=== PATIENT | female | born 1995 | race Caucasian/White ===

== ENCOUNTER 2017-08-12 16:37 | Emergency (ER) | payer OTHER ==
[~2017-08-12 16:37] MED LIST: AMOX500T PO
--- NOTE | 2017-08-12 17:16 | PD ---
HPI Chief Complaint Contractions Date Seen: Aug 12, 2017 Time Seen: 16:50 (Tal Soto MD R1) Travel History International Travel<30 Days: No Contact w/Intl Traveler<30Days: No Known Affected Area: No (Tal Soto MD R1) History of Present Illness HPI Alexis is a 21-year-old at 37 and 2 who is presenting to the ED with complaints of contractions. Patient states that she was seen by her OB doctor earlier this morning and was found to be 3 cm dilated. Since that exam she is been experiencing worsening contractions that have increased in duration and intensity. She states that her contractions are roughly every 3 minutes. She denies a gush of fluid, vaginal bleeding, decreased movement. She reports normal movement. He denies fevers or chills, dysuria or chest pain shortness of breath. She does complain of some nausea, but no vomiting. Patient has taken 1 dose of amoxicillin after her urine this morning was GBS positive. Patient has no other medical problems, does report smoking several cigarettes per day but no other alcohol or illicit drug use. (Tal Soto MD R1) History Past Medical History Medical History: Denies Significant Hx (Tal Soto MD R1) Obstetric History Obstetric History with 1 miscarriage. GBS positive, otherwise no complications during this . (Tal Soto MD R1) Past Surgical History Surgical History: No Previous Surgery (Tal Soto MD R1) Family History Narrative Family History Family history of multiple types of cancers including breast, colon, lung. No family history of diabetes or hypertension reported. (Tal Soto MD R1) Social History Narrative Social History Reports smoking several cigarettes per day Denies alcohol or illicit drug use. (Tal Soto MD R1) Allergies-Medications (Allergen,Severity, Reaction): Coded Allergies: No Known Allergies (Unverified , 08/18/17) Home Meds Active Scripts Sennosides-Docusate Sodium (Gnp Senna Plus 8.6-50 mg) 8.6 Mg-50 Mg Tab, 2 TAB PO Q12H Y for CONSTIPATION, #30 TAB Prov:Tez Braxton MD, R2 08/24/17 Oxycodone HCl/Acetaminophen (Oxycodone-Acetaminophen 5-325) 5 Mg-325 Mg Tablet, 1 TAB PO Q6H Y for PAIN SCALE 6 TO 10, #20 Prov:Tez Braxton MD, R2 08/24/17 Ibuprofen (Ibuprofen) 800 Mg Tab, 800 MG PO Q8H Y for CRAMPING, #30 TAB Prov:Tez Braxton MD, R2 08/24/17 Discontinued Scripts Vit W/ Ferrous Fumara Chew (Se-Ruby 19 29-1 mg Chew) 1 Chew, 1 TAB CHEW DAILY for Nutritional Supplement, #30 EA 11 Refills Prov:Adelita Yost [facility] 08/18/17 Amoxicillin (Amoxicillin) 500 Mg Tab, 500 MG PO TID for Infection, #12 TAB 0 Refills Prov:Adelita Yost [facility] 08/12/17 Review of Systems Except as stated in HPI: all other systems reviewed are Neg (Tal Soto MD R1) Physical Exam Narrative GENERAL: Well-nourished, well-developed patient. SKIN: Warm and dry. HEAD: Normocephalic and atraumatic. EYES: No scleral icterus. No injection or drainage. ENT: No nasal drainage noted. Mucous membranes pink. Airway patent. NECK: Supple, trachea midline. No JVD. CARDIOVASCULAR: Regular rate and rhythm without murmurs, gallops, or rubs. RESPIRATORY: Breath sounds equal bilaterally. No accessory muscle use. ABDOMEN/GI: Abdomen soft, non-tender, bowel sounds present, no rebound, no guarding Gravid to 37 weeks size GENITOURINARY: External Genitalia: intact and normal in appearance Cervix: Posterior Dilatation: 3 cm Effacement: 60% Station: -2 Presentation: Unknown Membranes: Intact Uterine Contractions: Actions every 3-5 minutes FHT's: Category: Early 1 Baseline: 135 Reactive: Yes Variability: Moderate Decels: Absent EXTREMITIES: No cyanosis or edema. BACK: Nontender without obvious deformity. No CVA tenderness. NEUROLOGICAL: Awake and alert. Motor and sensory grossly within normal limits. Five out of 5 muscle strength in all muscle groups. Normal speech. (Tal Soto MD R1) MDM Plan 21-year-old at 37 and 2 presenting to the ED with contractions at term. 1. Contractions -Patient having contractions on the monitor every 3-5 minutes -Category 1 tracing -Will monitor for active labor, and discharge if patient does not go in active labor Seen and discussed with Dr. Aaron (Tal Soto MD R1) Attending Attestation I was present, personally saw and examined patient, and was involved in all cutler decision making portions. [facility] (Adelita Aaron MD) Diagnosis Diagnosis: Primary Impression: contractions at term Tal Soto MD R1 Aug 12, 2017 17:16 Adelita Aaron MD Aug 24, 2017 18:48
--- NOTE | 2017-08-12 18:48 | PD ---
History of Present Illness History of Present Illness BP report Indications: IUP at 37 weeks, assessment of well-being Biophysical profile was performed with an JASON of 15.57, greater than 30 seconds breathing, greater than 3 gross movements, and several episodes of flexion-extension were noted. heart rate tracing with a baseline in the 130s with moderate long-term variability, good accelerations, no decelerations were noted with a reactive heart rate tracing [facility] 07/01 Follow-up: Follow-up as clinically indicated Final diagnosis: IUP at 37 weeks, reassuring testing, false labor Adelita Aaron MD Aug 12, 2017 18:48
[2017-08-18] MEDS ORDERED: SE-NCHW CHEW (09:37)
== END 2017-08-12 18:49 | disposition home or self-care (01) ==
LOC: HOBED 16:37
DX: O47.1 False labor at or after 37 completed weeks of gestation (principal); O99.333 Smoking (tobacco) complicating pregnancy, third trimester; Z3A.37 37 weeks gestation of pregnancy; Z79.899 Other long term (current) drug therapy
CPT/HCPCS: 59025

== ENCOUNTER 2017-08-22 06:07 | Inpatient (IN) | payer OTHER ==
[2017-08-22] VITALS (49 sets, daily range): BP systolic 87–117; BP diastolic 49–94; PULSE 76–128; RESP 16–20; TEMP 97.5–99.5; O2SAT 98
[~2017-08-22 06:07] MED LIST changes: +SE-NCHW CHEW
[2017-08-22] MEDS ORDERED: LACTATED RINGER'S 1000 ML INJ 1,000 ML IV PRN (06:38)
[2017-08-22] MEDS ORDERED: CITRIC ACID-SODIUM CITRATE LIQ 30 ML UDC PO SCH (06:45)
[2017-08-22] MEDS ORDERED: SODIUM CHLORID 0.9% 500 ML INJ 500 ML IV PRN (06:45)
[2017-08-22] MEDS ORDERED: LIDOCAINE HCL 1% 50 ML VIAL I-DERMAL PRN (06:45)
[2017-08-22] MEDS ORDERED: OXYTOCIN 30 UNITS-500ML PREMIX 500 ML IV ONE (06:45)
[2017-08-22] MEDS ORDERED: PENICILLIN G POTASSIUM INJ 5,000,000 UNITS in SODIUM CHLORIDE 0.9% INJ 100 ML IV ONE (06:45)
[2017-08-22] MEDS ORDERED: ONDANSETRON HCL 4 MG/2 ML VIAL IV PUSH PRN (06:45)
[2017-08-22] MEDS ORDERED: MINERAL OIL 10 ML VIAL TOPICAL PRN (06:45)
[2017-08-22] MEDS ORDERED: LIDOCAINE HCL 1% 50 ML VIAL INFIL PRN (06:45)
--- NOTE | 2017-08-22 06:46 | HHI.PR ---
[employer]' Note Note LABOR AND DELIVERY ADMISSION H&P HPI Chief Complaint ctx Date Seen: Aug 22, 2017 Time Seen: 06:40 Travel History International Travel<30 Days: No Contact w/Intl Traveler<30Days: No Known Affected Area: No History of Present Illness HPI Pt is a 21y/o @ 38.5wks. She has PNC at [facility]. She presents with c/o ctx which started at 11pm. They are painful and every 3-5mins. No LOF or VB. +FM. Weeks Gestation: 38 Para: 1 : 3 History Past Medical History Medical History: Denies Significant Hx Obstetric History Obstetric History x1 SAB x1 Past Surgical History Narrative Surgical wisdom teeth extraction Family History Family History: Negative Social History Alcohol Use: No Tobacco Use: Yes ("a few per day") Substance Abuse: No Allergies-Medications (Allergen,Severity, Reaction): Coded Allergies: No Known Allergies (Unverified , 08/18/17) Home Meds Active Scripts Vit W/ Ferrous Fumara Chew (Se-Ruby 19 29-1 mg Chew) 1 Chew, 1 TAB CHEW DAILY for Nutritional Supplement, #30 EA 11 Refills Prov:Adelita Yost 08/18/17 Discontinued Scripts Amoxicillin (Amoxicillin) 500 Mg Tab, 500 MG PO TID for Infection, #12 TAB 0 Refills Prov:Adelita Yost 08/12/17 Review of Systems Except as stated in HPI: all other systems reviewed are Neg Physical Exam Narrative General: well developed, well nourished, uncomfortable with contractions HEENT: normocephalic atraumatic, extraocular movements intact, neck supple Abdomen: soft, gravid Uterus: fundus term Extremities: full range of motion Skin: normal coloration, no rashes, no suspicious skin lesions noted Neurologic: cranial nerves 2-12 grossly intact, normal muscle tone, normal gait Psychiatric: normal mood and affect, appropriate FHTs: 135, minimal variability, + accels, no decels, reactive [place]: ctx q3m Cvx: 7-8/90/-1 Data Data Vital Signs Reviewed: Yes Orders Orders Ob (2e) Additional Admit Info (08/22/17 06:29) Vital Signs (Adult) .ON ADMISSION (08/22/17 06:38) ^ Labor Status (08/22/17 06:38) ^ Non Stress Test (08/22/17 06:38) Admit To Inpatient (08/22/17 ) Vital Signs (Adult) .Per protocol (08/22/17 06:38) Heart (08/22/17 06:38) Amnioinfusion (08/22/17 06:38) Urinary Catheter Management .ONCE (08/22/17 06:38) Diet Liquid (08/22/17 Breakfast) Lactated Ringer's 1000 Ml Inj (Lr 1000 M (08/22/17 06:38) Lactated Ringer's 1000 Ml Inj (Lr 1000 M (08/22/17 06:38) Sodium Chlorid 0.9% 500 Ml Inj (Ns 500 M (08/22/17 06:45) Sodium Chlor 0.9% 1000 Ml Inj (Ns 1000 M (08/22/17 06:58) Lidocaine 1% Inj (50 Ml) (Xylocaine 1% I (08/22/17 06:45) Citric Acid-Sodium Citrate Liq (Bicitra (08/22/17 06:45) Ondansetron Inj (Zofran Inj) (08/22/17 06:45) Fentanyl Inj (Fentanyl Inj) (08/22/17 06:45) Fentanyl Inj (Fentanyl Inj) (08/22/17 06:45) Penicillin G Potassium Inj (Pfizerpen-G (08/22/17 06:45) Penicillin G Potassium Inj (Pfizerpen-G (08/22/17 10:45) Complete Blood Count With Diff (08/22/17 06:38) Hold Clot (08/22/17 06:38) Abo/Rh Blood Type (08/22/17 06:38) Urinalysis - C+S If Indicated (08/22/17 06:38) Drug Screen, Random Urine (08/22/17 06:38) Rapid Plasma Regin (Rpr) W Ttr (08/22/17 06:38) Resp Oxygen Non Rebreathe Mask (08/22/17 ) ^ Epidural / Intrathecal Infus (08/22/17 06:38) Oxytocin 30 Units-500ml Premix (Pitocin (08/22/17 06:45) Lidocaine 1% Inj (50 Ml) (Xylocaine 1% I (08/22/17 06:45) Light Mineral Oil (Muri-Lube Oil) (08/22/17 06:45) Inpatient Certification (08/22/17 ) Group B Strep: Positive MDM Plan 21y/o @ 38.5wks in active labor. -- admit to L&D -- CLD, epidural/morales PRN -- PCN for GBS positive -- anticipate Diagnosis Diagnosis: Primary Impression: 38 weeks gestation of Additional Impressions: Uterine contractions during GBS (group B Streptococcus carrier), +RV culture, currently Tobacco use affecting in third trimester, antepartum Joaquín Campos MD Aug 22, 2017 06:44 Joaquín Campos MD Aug 22, 2017 06:46
[2017-08-22] MEDS ORDERED: SODIUM CHLOR 0.9% 1000 ML INJ 1,000 ML IV PRN (06:58)
[2017-08-22] MEDS: LACTATED RINGER'S 1000 ML INJ 1,000 ML IV SCH ×2 (07:04→07:48)
[2017-08-22 07:05] LABS: AUTOMATED NEUTROPHIL # 10.5 TH/MM3 (1.8-7.7); BASOPHIL % 0.3 % (0.0-2.0); EOSINOPHIL # 0.1 TH/MM3 (0-0.4); EOSINOPHIL % 0.8 % (0.0-4.0); HEMO FLAGS DIFF FINAL; LYMPH % 14.8 % (9.0-44.0); MEAN CELL VOLUME 83.6 FL (80.0-100.0); MEAN CORPUSCULAR HEMOGLOBIN 28.1 PG (27.0-34.0); MEAN CORPUSCULAR HGB CONC 33.6 % (32.0-36.0); MONO % 7.6 % (0.0-8.0); NEUT % 76.5 % (16.0-70.0); PLATELET COUNT 179 TH/MM3 (150-450); RED CELL DISTRIBUTION WIDTH 13.2 % (11.6-17.2); WHITE BLOOD COUNT 13.7 TH/MM3 (4.0-11.0)
[2017-08-22] MEDS ORDERED: fentaNYL 2MCG-BUPIV 0.125% INJ 100 ML ONE (07:07)
[2017-08-22] MEDS ORDERED: ePHEDrine/NS 25 MG/5 ML SYR ONE (07:08)
--- NOTE | 2017-08-22 07:14 | HHI.OB ---
Objective Vitals/I&O Vital Signs Date Time Temp Pulse Resp B/P (MAP) Pulse Ox O2 Delivery O2 Flow Rate FiO2 08/22/17 06:45 20 08/22/17 06:36 103 111/64 (80) Result Diagram: 08/22/17 0645 Objective Remarks GENERAL: Well-nourished, well-developed patient. CARDIOVASCULAR: Regular rate and rhythm without murmurs, gallops, or rubs. RESPIRATORY: Breath sounds equal bilaterally. No accessory muscle use. ABDOMEN/GI: Abdomen soft, non-tender, bowel sounds present. Incision: Clean, dry and intact. Fundus: Firm, non-tender at umbilicus. GENITOURINARY: Light to moderate bleeding. EXTREMITIES: No cyanosis or edema, non-tender, without signs of DVT. Medications and IVs Current Medications Medications (Trade) Dose Ordered Sig/Bandar Route Start Time Stop Time Status Last Admin Lactated Ringer's 1,000 ml @ 125 mls/hr Q8H IV 08/22/17 06:38 08/22/17 07:04 Lactated Ringer's 1,000 ml @ 3,000 mls/hr Q20M PRN IV 08/22/17 06:38 Sodium Chloride 500 ml @ 1,000 mls/hr ONCE PRN IV 08/22/17 06:45 Sodium Chloride 1,000 ml @ 100 mls/hr Q10H PRN IV 08/22/17 06:58 (Xylocaine 1% Inj (50 ml)) 0.1 ml UNSCH X1 PRN I-DERMAL 08/22/17 06:45 08/25/17 06:44 (Bicitra Liq) [address] CLERK PO 08/22/17 06:45 08/26/17 06:44 (Zofran Inj) 4 mg Q6H PRN IV PUSH 08/22/17 06:45 (fentaNYL INJ) 50 mcg Q1H PRN IV PUSH 08/22/17 06:45 (fentaNYL INJ) 100 mcg Q1H PRN IV PUSH 08/22/17 06:45 Penicillin G Potassium 9881514 units/Sodium Chloride 100 ml @ 200 mls/hr ONCE ONCE IV 08/22/17 06:45 08/22/17 07:14 08/22/17 06:45 Penicillin G Potassium [id number] units/Sodium Chloride 100 ml @ 200 mls/hr Q4H IV 08/22/17 10:45 Oxytocin 500 ml @ 999 mls/hr ONCE ONCE IV 08/22/17 06:45 08/22/17 07:15 (Xylocaine 1% Inj (50 ml)) 10 ml UNSCH X1 PRN INFIL 08/22/17 06:45 08/24/17 06:44 (Muri-Lube Oil) 10 ml UNSCH PRN TOPICAL 08/22/17 06:45 Reyna Live MD R2 Aug 22, 2017 07:14
[2017-08-22 07:17] LABS: BACTERIA, URINE RARE /hpf; BLOOD, URINE NEG (NEG); COMMENT (UR) CULTURE INDICATED; CULTURE IF INDICATED CULTURE INDICATED; GLUCOSE,URINE NEG (NEG); KETONE, URINE TRACE mg/dL (NEG); MUCUS URINE FEW /lpf (OCC); NITRITE,URINE NEG (NEG); SQUAMOUS EPITHELIAL CELL URINE 28 /hpf (0-5); URINE COLOR YELLOW (YELLW/STRAW)
[2017-08-22] MEDS ORDERED: NO SYSTEM NARCOTICS PRN (10:30)
[2017-08-22] MEDS ORDERED: ePHEDrine/NS 25 MG/5 ML SYR IV PUSH PRN (10:30)
[2017-08-22] MEDS ORDERED: DO NOT ADMINISTER ANTICOAGULANTS PRN (10:30)
[2017-08-22] MEDS ORDERED: fentaNYL 2MCG-BUPIV 0.125% 100 ML EPIDURAL SCH (10:30)
[2017-08-22] MEDS ORDERED: PENICILLIN G POTASSIUM INJ 2,500,000 UNITS in SODIUM CHLORIDE 0.9% INJ 100 ML IV SCH (10:45)
[2017-08-22] MEDS ORDERED: WITCH HAZEL 50%/GLYCERIN 12.5% 40 PAD JAR TOPICAL PRN (11:15)
[2017-08-22] MEDS ORDERED: BENZOCAINE 20% TOPICAL SPRAY 60 ML CAN TOPICAL PRN (11:15)
[2017-08-22] MEDS ORDERED: ACETAMINOPHEN 325 MG TAB PO PRN (11:15)
[2017-08-22] MEDS ORDERED: ONDANSETRON ODT 4 MG TAB PO PRN (11:15)
[2017-08-22] MEDS ORDERED: ALUMINUM/MAGNESIUM/SIMETH 30 ML CUP PO PRN (11:15)
[2017-08-22] MEDS ORDERED: SODIUM CHLORIDE 0.9% FLUSH 10 ML FLUSH IV FLUSH PRN (11:15)
--- NOTE | 2017-08-22 11:25 | PD.OB.DELI ---
Weeks gestation: 38 (38/5) Gest age assessed date: Aug 22, 2017 Gest age assessed time: 11:17 Pt started active labor?: Yes Active labor start date: Aug 22, 2017 Active labor start time: 06:00 Medical induction of labor?: No Artificial rupture of membrane: Yes Artificial ROM date: Aug 22, 2017 Artifical ROM time: 10:54 Anesthesia: Epidural Episiotomy: None Vaginal Delivery: Normal, Spontaneous Presentation: Occiput anterior Nuchal Cord: None Delayed cord clamping (45 sec): Yes Infant: Male Delivery date: Aug 22, 2017 Delivery time: 11:02 One Minute : 8 Five Minute : 9 Weight: 3232g Placenta: Spontaneous delivery, Intact Laceration: 1 deg (left labial laceration w/o bleeding; no laceration repair required) Estimated blood loss: 150cc Additional Information Delivered by Dr Sow, supervised by Dr Arellano, and assisted by Dr Live. Superficial left labial laceration w/o bleeding did not require laceration repair. Lan Sow MD R1 Aug 22, 2017 11:25
[2017-08-22] MEDS: IBUPROFEN 800 MG TAB PO PRN ×2 (11:52→19:58)
[2017-08-22] MEDS ORDERED: OXYTOCIN 30 UNITS-500ML PREMIX 500 ML IV SCH (12:00)
[2017-08-22] MEDS ORDERED: MEASLES, MUMPS, RUBELLA VACCINE 0.5 ML VIAL SQ ONE (16:00)
[2017-08-22] MEDS ORDERED: DIPHTH/TETANUS/ACEL PERTUSSIS (BOOSTER) 0.5 ML VIAL/PFS IM ONE (16:00)
[2017-08-22] MEDS: oxyCODONE/ACETAMINOPHEN 5 MG/325 MG TAB PO PRN (18:04)
[2017-08-22] MEDS: SODIUM CHLORIDE 0.9% FLUSH 10 ML FLUSH IV FLUSH SCH (19:39)
[2017-08-22] MEDS ORDERED: ZOLPIDEM TARTRATE 5 MG TAB PO PRN (21:00)
[2017-08-23] MEDS: oxyCODONE/ACETAMINOPHEN 10 MG/325 MG TAB PO PRN ×4 (00:10→18:32)
[2017-08-23] MEDS: IBUPROFEN 800 MG TAB PO PRN ×3 (03:08→23:19)
--- NOTE | 2017-08-23 08:04 | HHI.OB ---
Subjective Post Day: 1 Remarks day #1. AFVSS overnight. Pain somewhat controlled. Lochia less than a period. Denies dysuria. She is feeding the baby via bottle. Appetite good. She has nausea but no vomiting. Positive flatus. Negative bowel movement. Ambulating well. Denies calf pain, shortness of breath, or cough. Otherwise, she is doing well this morning and has no other complaints. Objective Vitals/I&O Vital Signs Date Time Temp Pulse Resp B/P (MAP) Pulse Ox O2 Delivery O2 Flow Rate FiO2 08/22/17 19:25 97.5 79 16 113/66 (82) 98 08/22/17 12:30 83 108/57 (74) 08/22/17 12:16 88 99/49 (66) 08/22/17 12:00 84 110/65 (80) 08/22/17 11:45 94 112/74 (87) 08/22/17 11:30 96 108/67 (81) 08/22/17 11:15 99.1 20 08/22/17 11:14 100 113/63 (80) 08/22/17 11:01 128 107/77 (87) 08/22/17 10:30 81 110/65 (80) 08/22/17 10:04 102 104/64 (77) 08/22/17 10:01 92 110/94 (99) 08/22/17 09:55 88 08/22/17 09:50 95 08/22/17 09:45 90 08/22/17 09:45 99.5 08/22/17 09:45 98.7 08/22/17 09:40 86 08/22/17 09:35 86 08/22/17 09:33 16 08/22/17 09:30 85 08/22/17 09:30 87 110/60 (77) 08/22/17 09:25 90 08/22/17 09:20 91 08/22/17 09:15 85 08/22/17 09:10 87 08/22/17 09:05 88 08/22/17 09:00 88 102/67 (79) 08/22/17 08:55 98 08/22/17 08:50 84 08/22/17 08:45 88 08/22/17 08:40 92 08/22/17 08:35 91 12/1/17 08:30 83 08/22/17 08:30 82 97/54 (68) 08/22/17 08:28 20 08/22/17 08:25 87 08/22/17 08:20 87 117/70 (86) 08/22/17 08:20 95 08/22/17 08:15 86 101/61 (74) 08/22/17 08:15 89 08/22/17 08:10 87 08/22/17 08:10 84 100/56 (71) 08/22/17 08:05 85 105/58 (74) 08/22/17 08:05 76 08/22/17 08:00 87 08/22/17 08:00 87 106/57 (73) Objective Remarks GENERAL: Well-nourished, well-developed patient. CARDIOVASCULAR: Regular rate and rhythm without murmurs, gallops, or rubs. RESPIRATORY: Breath sounds equal bilaterally. No accessory muscle use. ABDOMEN/GI: Abdomen soft, non-tender. Fundus: Firm, non-tender below umbilicus. GENITOURINARY: Light to moderate bleeding. EXTREMITIES: No cyanosis or edema, non-tender, without signs of DVT. Medications and IVs Current Medications Medications (Trade) Dose Ordered Sig/Bandar Route Start Time Stop Time Status Last Admin (NS Flush) 2 ml BID IV FLUSH 08/22/17 11:15 (NS Flush) 2 ml UNSCH PRN IV FLUSH 08/22/17 11:15 (Tylenol) 650 mg Q4H PRN PO 08/22/17 11:15 08/22/17 14:04 (Motrin) 800 mg Q8H PRN PO 08/22/17 11:15 08/23/17 03:08 (Americaine 20% Top Spr) 1 spray Q4H PRN TOPICAL 08/22/17 11:15 (Tucks Pads) 1 applic QID PRN TOPICAL 08/22/17 11:15 (Tamar-Colace) 2 tab Q12H PRN PO 08/22/17 11:15 (Ambien) 5 mg HS PRN PO 08/22/17 21:00 08/23/17 00:10 (Mag-Al Plus Susp Liq) 15 ml Q8H PRN PO 08/22/17 11:15 (Zofran Odt) 4 mg Q6H PRN PO 08/22/17 11:15 (Percocet 5-325 Mg) 1 tab Q6H PRN PO 08/22/17 17:45 08/22/17 18:04 (Percocet 10-325 Mg) 1 tab Q6H PRN PO 08/22/17 17:45 08/23/17 05:52 Assessment/Plan Assessment and Plan 21y/o female who is PPD#1 s/p vaginal delivery -Continue routine care -Motrin and Percocet PRN for pain -Pericolase PRN for constipation -Encouraged OOB. Advised pelvic rest for 6 wks -Will need a follow-up appointment within 6 wks for post- check -Re: ctrl - patient is thinking about options. She would like to have had breast checks because she has lumps before she makes a decision. He discussed setting up a GLASS ARTIST appointment at the [facility]. Discussed with Dr. Arellano Discharge Planning Discharge home in 1 day Reyna Live MD R2 Aug 23, 2017 08:04
[2017-08-23] MEDS: SODIUM CHLORIDE 0.9% FLUSH 10 ML FLUSH IV FLUSH SCH (09:00)
[2017-08-23 21:43] VITALS: BP 108/66; PULSE 80; RESP 16; TEMP 98.2
[2017-08-23] MEDS: oxyCODONE/ACETAMINOPHEN 5 MG/325 MG TAB PO PRN (23:16)
[2017-08-23] MEDS: DOCUSATE SODIUM 50 MG/SENNA 8.6 MG TAB PO PRN (23:16)
[2017-08-24] MEDS: oxyCODONE/ACETAMINOPHEN 5 MG/325 MG TAB PO PRN ×2 (05:23→10:43)
[2017-08-24] MEDS: IBUPROFEN 800 MG TAB PO PRN (07:32)
[2017-08-24 07:53] VITALS: BP 103/71; PULSE 78; RESP 18; TEMP 97.5
[2017-08-24] MEDS ORDERED: PERI PO (08:27)
[2017-08-24] MEDS ORDERED: IBUP1TAB7 PO (08:27)
[2017-08-24] MEDS ORDERED: OXYC1TAB63 PO (08:27)
--- NOTE | 2017-08-24 08:32 | HHI.DCPOC ---
Discharge Care Plan Diagnosis: (1) care following vaginal delivery Report Symptoms to Your Doctor -Temperature above 100.5 degrees -Redness, of incision or excessive or foul smelling drainage -Unusual pain or calf pain -Increased vaginal bleeding -Painful or difficulty urinating -Feelings of extreme sadness or anxiety after 2 weeks Goals to Promote Your Health * To prevent worsening of your condition and complications * To maintain your health at the optimal level Directions to Meet Your Goals Take your medications as prescribed Follow your dietary instruction Follow activity as directed Ensure plenty of rest for recovery Drink fluids for hydration Keep your appointments as scheduled Take your immunizations and boosters as scheduled If your symptoms worsen call your PCP, if no PCP go to Urgent Care Center or Emergency Room Smoking is Dangerous to Your Health. Avoid second hand smoke Call the 24-hour crisis hotline for domestic abuse at Tez Braxton MD, R2 Aug 24, 2017 08:32
--- NOTE | 2017-08-24 08:34 | HHI.OB ---
Subjective Post Day: 2 Remarks day #2. AFVSS overnight. Pain controlled with medications. Decreased lochia. Denies dysuria. No breast tenderness. Appetite good. No nausea or vomiting. Endorses flatus. No bowel movement. Ambulating well. Denies calf pain, shortness of breath, or cough. Otherwise, she is doing well this morning and has no other complaints. (Tez Braxton MD, R2) Remarks Patient seen and evaluated with resident under direct supervision, agree with assessment and plan. (Edgardo Rollins MD) Objective Vitals/I&O Vital Signs Date Time Temp Pulse Resp B/P (MAP) Pulse Ox O2 Delivery O2 Flow Rate FiO2 08/24/17 07:53 97.5 08/24/17 07:53 78 18 103/71 (82) 08/23/17 21:43 98.2 80 16 108/66 (80) Objective Remarks GENERAL: Well-nourished, well-developed patient. CARDIOVASCULAR: Regular rate and rhythm without murmurs, gallops, or rubs. RESPIRATORY: Breath sounds equal bilaterally. No accessory muscle use. ABDOMEN/GI: Abdomen soft, non-tender. Fundus: Firm, non-tender below umbilicus. GENITOURINARY: Light to moderate bleeding. EXTREMITIES: No cyanosis or edema, non-tender, without signs of DVT. Medications and IVs Current Medications Medications (Trade) Dose Ordered Sig/Bandar Route Start Time Stop Time Status Last Admin (NS Flush) 2 ml BID IV FLUSH 08/22/17 11:15 (NS Flush) 2 ml UNSCH PRN IV FLUSH 08/22/17 11:15 (Tylenol) 650 mg Q4H PRN PO 08/22/17 11:15 08/22/17 14:04 (Motrin) 800 mg Q8H PRN PO 08/22/17 11:15 08/24/17 07:32 (Americaine 20% Top Spr) 1 spray Q4H PRN TOPICAL 08/22/17 11:15 (Tucks Pads) 1 applic QID PRN TOPICAL 08/22/17 11:15 (Tamar-Colace) 2 tab Q12H PRN PO 08/22/17 11:15 08/23/17 23:16 (Ambien) 5 mg HS PRN PO 08/22/17 21:00 12/2/17 00:10 (Mag-Al Plus Susp Liq) 15 ml Q8H PRN PO 08/22/17 11:15 (Zofran Odt) 4 mg Q6H PRN PO 08/22/17 11:15 (Percocet 5-325 Mg) 1 tab Q6H PRN PO 08/22/17 17:45 08/24/17 05:23 (Percocet 10-325 Mg) 1 tab Q6H PRN PO 08/22/17 17:45 08/23/17 18:32 (eTz Braxton MD, R2) Assessment/Plan Assessment and Plan 21y/o female who is PPD#2 s/p vaginal delivery -Continue routine care -Motrin and Percocet PRN for pain -Pericolase PRN for constipation -Encouraged OOB. Advised pelvic rest for 6 wks -Will need a follow-up appointment within 6 wks for post- check -Re: ctrl - patient is thinking about options. She would like to have had breast checks because she has lumps before she makes a decision. He will be setting up a DIESEL TECHNICIAN appointment at the [facility]. Discharge Planning Discharge home today (Tez Braxton MD, R2) Tez Braxton MD, R2 Aug 24, 2017 08:34 Edgardo Rollins MD Aug 24, 2017 09:00
[2017-08-24] MEDS: DOCUSATE SODIUM 50 MG/SENNA 8.6 MG TAB PO PRN (10:43)
== END 2017-08-24 12:56 | disposition home or self-care (01) | DRG 775 ==
LOC: HOBED 06:07 → H2EB 06:30 → H1EA 13:10
PROVIDERS: ADMIT Obstetrics & Gynecology; ATTEND Obstetrics & Gynecology
PROC: 10E0XZZ Delivery of Products of Conception, External Approach (ICD-10-PCS; principal; 2017-08-22)
PROC: 00HU33Z Insertion of Infusion Device into Spinal Canal, Percutaneous Approach (ICD-10-PCS; 2017-08-22)
PROC: 3E0R3BZ Introduction of Anesthetic Agent into Spinal Canal, Percutaneous Approach (ICD-10-PCS; 2017-08-22)
DX: O99.334 Smoking (tobacco) complicating childbirth (principal); F17.210 Nicotine dependence, cigarettes, uncomplicated; Z3A.38 38 weeks gestation of pregnancy; Z37.0 Single live birth; Z22.330 Carrier of Group B streptococcus; O70.0 First degree perineal laceration during delivery
CPT/HCPCS: 80307; 81001; 85025; 86592; 86900; 86901; 87086; J2540; J2590; J7120